=== PATIENT | female | born 1960 | race Two or more races ===

== ENCOUNTER 2025-09-05 10:04 | Outpatient (CLI) | payer OTHER | END 2025-09-05 10:11 | disposition home or self-care (01) | LOC: RAD 10:04 | PROVIDERS: ATTEND Orthopaedic Surgery | DX: S52.532A Colles' fracture of left radius, initial encounter for closed fracture (principal) ==

== ENCOUNTER 2025-10-04 10:08 | Outpatient (CLI) | payer OTHER | END 2025-10-04 10:10 | disposition home or self-care (01) | LOC: RAD 10:08 | PROVIDERS: ATTEND Orthopaedic Surgery | DX: S52.532D Colles' fracture of left radius, subsequent encounter for closed fracture with routine healing (principal) ==